=== PATIENT | female | born 1955 | race Caucasian/White ===

== ENCOUNTER 2017-09-10 14:04 | Emergency (ER) | payer SELFPAY ==
[~2017-09-10] VITALS: Ht 154.9 cm; Wt 55.0 kg
[2017-09-10 19:16] LABS: BASOPHILS % 0.6 % (0.0-2.0); HEMATOCRIT. 41.6 % (36.0-48.0); HEMOGLOBIN. 14.4 g/dL (12.0-16.0); LYMPHOCYTES % 37.6 % (20.0-50.0); MEAN CORPUSCULAR HEMOGLOBIN 30.8 pg (28.0-32.0); MEAN CORPUSCULAR VOLUME 88.9 fL (81.0-99.0); MEAN PLATELET VOLUME 8.5 fl (7.4-10.4); MONOCYTES % 7.9 % (2.0-8.0); NEUTROPHILS % 51.9 % (40.0-76.0); PLATELET 301 x1000/uL (130-400); RED BLOOD CELL COUNT 4.68 mill/uL (4.2-5.4); RED CELL DISTRIBUTION WIDTH 13.6 % (11.6-14.6)
[2017-09-10 19:23] LABS: CHLORIDE 108 mEq/L (98-107)
[2017-09-11 00:20] VITALS: BP 159/91
== END 2017-09-11 00:39 | disposition home or self-care (01) ==
LOC: ER 14:49
DX: H54.3 Unqualified visual loss, both eyes (principal); H40.9 Unspecified glaucoma; K80.20 Calculus of gallbladder without cholecystitis without obstruction; Z90.49 Acquired absence of other specified parts of digestive tract
CPT/HCPCS: 36415; 70450; 80053; 83735; 85025; 93005; 99285; Z7610